=== PATIENT | female | born 1950 | race Caucasian/White ===

== ENCOUNTER 2024-05-04 11:39 | Emergency (ER) | payer OTHER ==
[2024-05-04 12:26] VITALS: RESP 18; BMI 22.7
[2024-05-04] MEDS: ACETAMINOPHEN 325 MG TABLET (FP) PO ONE (12:30)
[2024-05-04 17:13] LABS: BASO % 0.6 % (0-2.0); EOS % 0.9 % (0-4.5); HEMATOCRIT 36.7 % (32.4-45.2); HEMOGLOBIN 11.5 GM/dL (10.7-15.3); LYMPH % 17.7 % (8-40); MCH 25.9 pg (25.7-33.7); MCHC 31.5 g/dl (32.0-36.0); MEAN CELL VOLUME 82.3 fl (80-96); MEAN PLT VOLUME 7.9 fl (7.5-11.1); MONO % 6.2 % (3.8-10.2); NEUT % 74.6 % (42.8-82.8); PLATELET COUNT 284 10^3/uL (134-434); RBC 4.46 M/mm3 (3.60-5.2); RDW 15.2 % (11.6-15.6); WHITE BLOOD COUNT 9.7 K/mm3 (4.0-10.0)
[2024-05-04 18:05] LABS: CALCIUM 10.2 mg/dL (8.5-10.1); POTASSIUM 4.3 mmol/L (3.5-5.1)
[2024-05-04 18:06] LABS: ALBUMIN 3.3 g/dl (3.4-5.0); BLOOD UREA NITROGEN 23.9 mg/dL (7-18)
[2024-05-04 18:09] LABS: CREATININE 1.4 mg/dL (0.55-1.3)
[2024-05-04 18:11] LABS: BILIRUBIN,TOTAL 0.5 mg/dL (0.2-1); TOT PROT 6.6 g/dl (6.4-8.2)
[2024-05-04] MEDS ORDERED: levETIRAcetam 500 MG/5 ML INJECTION VIAL IVPB ONE (19:02)
[2024-05-04] MEDS: levETIRAcetam 500 MG/5 ML INJECTION VIAL IVPB SCH (19:13)
[2024-05-04 19:44] VITALS: TEMP 98.5
[2024-05-04 23:06] VITALS: BP 131/65; PULSE 95
== END 2024-05-04 20:30 | disposition short-term general hospital (02) ==
LOC: JER 11:39
DX: S00.03XA Contusion of scalp, initial encounter (principal); S80.212A Abrasion, left knee, initial encounter; V00.811A Fall from moving wheelchair (powered), initial encounter
CPT/HCPCS: 36415; 70450-TC; 71045-TC-FY; 72125-TC; 80053; 85025; 93005; 93010; 99285-25